=== PATIENT | female | born 1980 | race Asian ===

== ENCOUNTER 2016-12-31 05:29 | Inpatient (IN) | payer OTHER ==
[~2016-12-31] VITALS: Ht 152.4 cm; Wt 57.6 kg
[~2016-12-31 05:29] MED LIST: DOCU-41 PO; Ibuprofen PO; Lactated Ringer's 1,000 ML IV SCH; Oxycodone Hcl/Acetaminophen PO; PREN-20 PO
[2016-12-31] MEDS ORDERED: Hemorrhage Kit, Post Partum XX ONE ×2 (05:40→09:05)
[2016-12-31] MEDS ORDERED: Lactated Ringer's 1,000 ML IV SCH (05:40)
[2016-12-31] MEDS ORDERED: Methylergonovine 0.2 mg/mL Inj IM PRN ×2 (05:40→09:05)
[2016-12-31] MEDS ORDERED: CeFAZolin Inj 2 GM in Dextrose 5% 50 ML IV ONE (05:40)
[2016-12-31] MEDS ORDERED: Sodium Citrate-Citric Acid 15 mL Solution PO SCH (05:40)
[2016-12-31] MEDS ORDERED: Oxytocin 10 Unit/mL Inj IM PRN ×2 (05:40→09:05)
[2016-12-31] MEDS ORDERED: Carboprost 250 mCg/mL Inj IM PRN ×2 (05:40→09:05)
[2016-12-31 06:18] LABS: Mean Corpuscular Hemoglobin 31.9 pg (27.0-35.0); Mean Corpuscular Volume 91.1 fL (81-100)
--- NOTE | 2016-12-31 07:11 | PCM.HPOB ---
Subjective Date of Service: Dec 31, 2016 Referring Provider: Admitting Physician: Sulema Agarwal MD Primary Care Physician: Nopcp Attending Physician: Sulema Agarwal MD Chief Complaint Planned History of Present History of Present Illness Patient is a 36 y.o. F at [facility] 01/07/2017 admitted for planned cesarian section at 39 weeks. Previous delivered via cesarian section, complicated by HTN, fever, tachycardia. PMH exposure to TB. Patient has had routine care and screening for pre-eclampsia. Patient has elected to have repeat cesarian section vs , consent signed in clinic. Patient noted that she has elected for tubal ligation. Today patient is doing well no complaints of fever, chills, vaginal bleeding, fluid leaking, pain, decreased urination. Allergy none Vaccinations up to date labs: genetic screening negative 24 hour urine protien negative Quad screen negative GGT negative B + Ab screen negative HCT 40.4 Hgb 13.8 Pap negative Varicella immune Rubella immune HepB negative HIV negative Hep C neg RPR non reactive G/C negative TSH 0.823 GBS negative OB History: (2), Para (1) Past Medical History Obstetrical History: one previous cesarian section Complicated with PIH Gynecologic History: negative pap 2014 no history of STI Medical History: None Surgical History: previous cesarian section Social History: lives with and child Hx Tobacco Use: No Hx Alcohol Use: No Hx Substance Use: No Past Family History Living Arrangement: with Family Genetic Screening/Counseling Genetic Screening/Counseling: Negative Review of Systems Constitutional: Y: Change of appitite, Chills, Dizziness Eyes: Denies: Blurred Vision ENT: Denies: Ear Discharge, Ear Pain Cardiovascular: Denies: Chest Pain, Edema, Orthopnea Respiratory: Denies: Cough Gastrointestinal: Denies: Abdominal Pain, Heartburn, Nausea, Vomiting Genitourinary: Denies: Dysuria, Hematuria Musculoskeletal: Denies: Redness, Swelling Skin/Breasts: Denies: Bruising, Discharge Skin: Denies: Bruising, Jaundice Neurological: Denies: Change in Speech Psychologic: Denies: Agitation, Anxious, Apprehensive Medications Home medications vitamin Allergy Coded Allergies: No Known Allergies (Unverified Allergy, Unknown, 11/24/14) Exam Vital Signs 36.7 93 122/78 16 Exam FHR baseline 140 Category I tracing reactive, moderate variability Constitutional: Well-developed, Well-nourished HEENT: Atraumatic, PERRLA Lungs: Clear to Auscultation, Normal Air Movement Heart: Regular Rate/Rhythm, Normal S1, Normal S2, No Murmurs/Rubs/Gallops Abdomen: Gravid (size consistent with gestational age), Normal bowel sounds, Soft Extremities: Pulses Palpable x4, No Edema Neurological/Psychiatric: Alert, Oriented X3, Cooperative, No Acute Distress Labs/Diagnostics Labs WCT 10 Hgb 14 HCT 40 Ultra Sound 12/24/16 BPP US FINDINGS: General: A single living intrauterine gestation is present. Presentation: Vertex Placenta: Placental position is anterior, without previa. [employer] Ultrasound Procedure Report Summary Fetus Summary Estimated Gestational Age by first dating scan: 38 weeks, 0 days Composite Gestational Age by present scan: 39 weeks, 1 day Estimated Weight (EFW): 3854 g EFW percentile rank: 93 % Heart Rate: 148 bpm Findings(Amniotic Sac) Amniotic Fluid Index: 16.80 cm Pelvis and Uterus Cervix Length (Mean): 2.98 cm Biometry BiometryGroup Biparietal Diameter (Mean): 9.47 cm Gestational Age (BPD): 38 weeks, 4 days Head Circumference (Mean): 34.14 cm Gestational Age (HC): 39 weeks, 2 days Abdominal Circumference (Mean): 36.74 cm Gestational Age (AC): 40 weeks, 5 days Femur Length (Mean): 7.39 cm Gestational Age (FL): 37 weeks, 6 days Biophysical Profile Tone: 2 Gross Body Movement: 2 Breathin Amniotic Fluid Volume: 2 Biophysical Profile Sum Score: 8 Findings(Pelvic Vascular Structure) Umbilical Artery S/D Ratio: 1.93, 1.66, 1.61 IMPRESSION: Interval growth greater than expected estimated weight at the 93rd percentile. Correlate clinically. Normal biophysical profile and cord Doppler with preserved diastolic flow. Dictated by: Kermit JERRY Interpreted: Stanton Vidal MD on 12/24/2016 at 16:46 Approved by: Stanton Vidal M.D. on 12/24/2016 at 16:57 Maternal Blood Type: B Hx Rho(D) Immune Globulin: No Group B Strep Results: Negative Previous with GBS: No Rubella: Immune Additional Information vaccinations up to date OB Intrapartum Assessment/Plan Pain Evaluation: Adequate Pain Control Intrapartum plan Admit to [facility] for planned cesarian section Start IV IVF LR 125 mls/hr Anesthesia consult placed Ancef prior to surgery NPO Attending Statement I saw patient and examined her. I agree with above plan. NATHAINEL VAZQUEZ DO Dec 31, 2016 07:11 Sulema Agarwal MD Jan 09, 2017 15:54
--- NOTE | 2016-12-31 07:34 | HP ---
[address] [address] HISTORY AND PHYSICAL PATIENT: CHRIS PATRICK : 1980 MR#: [id number] ADMIT: 12/31/2016 JOB ID: [id number] HISTORY OF PRESENT ILLNESS: This is a 36-year-old female. She is 2, para 1, at 39 weeks. She presents today for a scheduled repeat section. She is a patient that has had routine care in the office. During her care, there was no abnormal finding. Her blood type is Rh positive. HIV negative. Hepatitis B negative. HCV negative. RPR negative. Chlamydia and gonorrhea negative and GBS negative. ALLERGIES: She has no known drug allergies. PAST MEDICAL HISTORY: She declined. PAST SURGICAL HISTORY: She has a previous section x1. GYNECOLOGICAL HISTORY: Not complicated. OBSTETRICAL HISTORY: She has one previous section for failure to descend. PHYSICAL EXAMINATION: She is afebrile. Her blood pressure in normal range. Cardiac RR, no murmur. Pulmonary bilaterally clear. Back nontender. No CVA tenderness. Abdomen is soft, nontender. Extremities nontender. heart tracing category one. Contractions not seen. ASSESSMENT AND PLAN: A 36-year-old female, 2, para 1, at 39 weeks previous section. 1. Plan for repeat section. 2. Previously the patient is not desiring for tubal ligation. Now she is planning for a possible tubal ligation if baby looks normal after delivery. We will sign consent form for tubal ligation.
[2016-12-31] MEDS ORDERED: Morphine PF 1 mg/mL 10 mL Inj INTRATHEC ONE (08:15)
[2016-12-31] MEDS ORDERED: Ondansetron 2 mg/mL 2 mL Inj IVPUSH PRN (08:15)
[2016-12-31] MEDS ORDERED: fentaNYL-PF 50 mCg/mL 2 mL Inj IVPUSH PRN (08:15)
[2016-12-31] MEDS ORDERED: HYDROmorphone 1 mg/mL Inj IVPUSH PRN (08:15)
[2016-12-31] MEDS ORDERED: Atropine 0.4 mg/mL Inj IV PRN (08:15)
[2016-12-31] MEDS ORDERED: EPHEDrine Sulfate 50 mg/mL Inj IVPUSH PRN (08:15)
[2016-12-31] MEDS ORDERED: MetoCLOpramide 5 mg/mL 2 mL Inj IVPUSH PRN (08:15)
[2016-12-31] MEDS ORDERED: Dexamethasone 4 mg/mL Inj IVPUSH PRN (08:15)
[2016-12-31] MEDS ORDERED: LANOlin HPA 7 Gm Ointment TOPICAL PRN (09:05)
[2016-12-31] MEDS ORDERED: Oxytocin 30 Units/500 mL LR 30 UNITS in IV Premix 1 EACH IV PRN (09:05)
[2016-12-31] MEDS ORDERED: Sodium Chloride LOK Flush 10 mL Syringe IVFLUSH PRN (09:05)
--- NOTE | 2016-12-31 09:07 | PCM.ANEP1 ---
Post Anesthesia PACU Phase 1 Assessment Anesthetic Administered: SAB Level of Alertness: Awake, talking CLAROS's with Equal Strength: No (spinal) Pain: No Nausea or Vomiting: No CV Function & Hydration Stable: Yes Airway Device: Oxygen Delivery: Room Air Lungs: Clear to Auscultation, Normal Air Movement PACU Phase 2 Assessment Complications: No Patient Instructions Provided: N/A Wes Buck MD Dec 31, 2016 09:07
[2016-12-31] MEDS: Acetaminophen IV 1,000 MG in IV Premix 1 EACH IV PRN ×2 (09:37→15:26)
--- NOTE | 2016-12-31 09:56 | OP ---
[address] [address] OPERATIVE REPORT PATIENT: CHRIS PATRICK : 1980 MR#: [id number] ADMIT: 12/31/2016 JOB ID: [id number] DATE OF SURGERY: 12/31/2016 HISTORY: This is a 36-year-old female. She is 2, para 2 now status post repeat section. PROCEDURE: Repeat section and bilateral salpingectomy. PREOPERATIVE DIAGNOSIS(ES): Previous section, desire for permanent sterilization. POSTOPERATIVE DIAGNOSIS(ES): Previous section, desire for permanent sterilization. SURGEON: Sulema Agarwal M.D. LAUNDRY CLERK: Dr. Alistair Shaw. Jury Consultant is very necessary for this procedure to be complete and for delivery of the baby. This is a 36-year-old female, 1, para 1 now. She had previous section two years ago when she was fully dilated, pushed for 3 hours with no descent of head. She decided to have repeat section for this . Informed consent signed after discussion about the benefits, risks and alternatives of the procedure. The patient understood the risk of infection, bleeding, injury to the organs around the uterus including but not limited to the bladder, ureters, major vessels, nerves and bowels. The patient also desires for permanent sterilization, agreed for bilateral salpingectomy. PROCEDURE IN DETAIL: The patient was transferred to operating room. After anesthesia was noted to be adequate, she was placed in the supine position with a leftward tilt. She was prepared and draped in a normal sterile fashion. A Pfannenstiel incision was placed by Bovie along the previous scar and this incision was carried through to the underlying fascia with Bovie. A transverse incision was placed on fascia and extended bilaterally with Hernandez scissors. At this time, the superior aspect of the incision was grasped by tenraghu, tented up. The underlying rectus muscle dissected off. The inferior aspect of the incision was grasped by adnexa Suhas, tented up. The underlying rectus muscle was dissected off. The rectus muscle was in the midline. The underlying peritoneum identified and entered sharply with direct visualization and extended bilaterally both bluntly and sharply. At this time, the lower blade inserted to expose the lower segment of the uterus. The vesicouterine peritoneum identified and entered sharply with Ferdinand scissors and extended bilaterally by Ferdinand scissors. The bladder flap created both sharply and digitally and the lower blade reinserted to expose the lower segment of the uterus. A transverse incision was placed on the lower segment uterus and extended bilaterally by bandage scissors. At this time, all instruments cleared from the field. The was delivered without difficulty. The infant after delivered there was spontaneous crying and there is normal tone. Delayed cord clamping performed 1 minute after delivery. The infant was handed to waiting used car lot attendant. At this time, the cord blood collected and the uterus was delivered spontaneously completely and examined with three-vessel cord. Uterus exteriorized. All debris and clots cleared from the field. The incision was closed by 0-Vicryl continuously with locked fashion. Hemostasis confirmed after closure of the incision. At this time, the attention was moved to her bilateral adnexa. The right tube was grasped by Mathews. The couple of avascular areas were penetrated by Bovie and the vessel was suture ligated and the entire tube was removed. Hemostasis confirmed. The same procedure was done on the left tube. Both ovaries looked normal. The pelvis was irrigated by warm normal saline and hemostasis confirmed. The uterus returned back to the abdominal cavity. The incision of the uterus was double checked. Hemostasis confirmed. At this time, the fascia was closed by 0-Vicryl continuously and then subcutaneous fat tissue was closed by 2-0 plain sutures and the skin was closed by 4-0 Monocryl on the Antione needle subcutaneously. The patient tolerated the procedure well. The EBL during the procedure was 600 cc. All instrument, needles, laps and gauzes counted correct twice. Urine output 200 cc. Patient transferred to recovery room in a stable condition.
[2016-12-31] MEDS ORDERED: Phenylephrine 10,000 mCg/mL Inj ONE (10:20)
[2016-12-31] MEDS ORDERED: Bupivacaine-MPF 0.75% 30 mL Inj ONE (10:20)
[2016-12-31] MEDS ORDERED: Morphine PF 1 mg/mL 10 mL Inj ONE (10:20)
[2016-12-31] MEDS ORDERED: Oxytocin 10 Unit/mL Inj ONE (10:20)
[2016-12-31] MEDS ORDERED: fentaNYL-PF 50 mCg/mL 2 mL Inj ONE (10:20)
[2016-12-31] MEDS: Lactated Ringer's 1,000 ML IV SCH ×3 (13:32→21:31)
[2017-01-01] MEDS: oxyCODONE-Acetamin 5-325 mg Tablet PO PRN ×5 (00:50→21:05)
[2017-01-01 06:20] LABS: Mean Corpuscular Hemoglobin 32.4 pg (27.0-35.0); Mean Corpuscular Volume 92.1 fL (81-100)
--- NOTE | 2017-01-01 07:44 | PCM.PNOBPP ---
Subjective Date of Service Jan 01, 2017 Post : Repeat Ceserean Delivery Visit History Patient is a 36 y.o. F at [facility] 01/07/2017 admitted for planned cesarian section at 39 weeks. Previous delivered via cesarian section, complicated by HTN, fever, tachycardia. PMH exposure to TB. Patient has had routine care and screening for pre-eclampsia. Patient has elected to have repeat cesarian section vs , consent signed in clinic. Patient noted that she has elected for tubal ligation. Group B Strep Results: Negative Rubella: Immune Blood Type: B Labs Laboratory Tests 01/01/17 05:57: White Blood Count 11.3, Red Blood Count 3.30, Hemoglobin 10.7, Hematocrit 30.4, Mean Corpuscular Volume 92.1, Mean Corpuscular Hemoglobin 32.4, Mean Corpuscular Hemoglobin Concent 35.2, Red Cell Distribution Width 13.2, Platelet Count 167 Exam Vital Signs Vital Signs: VS reviewed, stable Exam Abdomen: Fundus firm Perineum: Intact Extremities: No cords, Normal pulses, No edema Lungs: Clear to Auscultation, Normal Air Movement Heart: Regular Rate/Rhythm, Normal S1, Normal S2 General: Oriented X3, Cooperative, No Acute Distress Surgical Wound : Incision General Appearence: Wound under dressing Dressing & Drainage Status: Reinforced, Foul Odor Noted OB Post Assessment/Plan Pain Evaluation: Adequate Pain Control Post plan: Continue routine post care Attending Statement The patient was seen and examined together with Dr. Sahil Vazquez on 01/01/2017 and I agree with the history, exam and plan as outlined in the note above. SAHIL VAZQUEZ DO Jan 01, 2017 07:43 Alistair Shaw MD Jan 01, 2017 10:31
--- NOTE | 2017-01-01 15:35 | PATH ---
SURGICAL PATHOLOGY Attending Physician:Sulema Agarwal MD CASE STATUS: Signed Out PATIENT NAME: CHRIS PATRICK PID: [id number] : 1980 DATE COLLECTED:12/31/2016 20:19 SPECIMEN: 1: Fallopian Tube, Sterilization 2: Fallopian Tube, Sterilization CLINICAL HISTORY: PREVIOUS , REPORT AND D/C SALPINGECTOMY 1). LEFT FALLOPIAN TUBES 2). RIGHT FALLOPIAN TUBES FINAL DIAGNOSIS: 1.LEFT FALLOPIAN TUBE, STERILIZATION: ONE COMPLETE CIRCUMFERENTIAL SECTION OF FALLOPIAN TUBE. 2.RIGHT FALLOPIAN TUBE, STERILIZATION: ONE COMPLETE CIRCUMFERENTIAL SECTION OF FALLOPIAN TUBE. ICD10 Z30.2 GROSS DESCRIPTION: The specimen is received fresh in 2 containers labeled with the patient's name. 1). The specimen is labeled "left" and consists of a cylindrical shaped portion of tissue which measures 6.0 x 0.5 x 0.5 CM. The specimen is inked blue, 4 claim representative sections are submitted in cassette 1A. 2). The specimen is labeled "right" and consists of a cylindrical shaped portion of tissue which measures 5.0 x 0.5 x 0.5 CM. The specimen is inked blue, 4 claim representative sections are submitted in cassette 2A. 12/31/2016DC MICRO DESCRIPTION: See diagnosis. ICD-9 CODES: CPT CODES: 1: 82276 2: 56268 Electronically Signed Out Danii Liang MD [facility] Pathology [facility], [place] [address] Technical component performed at [facility], [address] [place] [address] [address], [place], [address]
[2017-01-02] MEDS: oxyCODONE-Acetamin 5-325 mg Tablet PO PRN ×3 (02:52→10:24)
--- NOTE | 2017-01-02 12:09 | PCM.DIOB ---
Obstetrical Disch Instruction Date of Service: Jan 02, 2017 Dates of Hospitalization Date of Hospital Admission Dec 31, 2016 at 05:29 Providers Admitting Physician: Sulema Agarwal MD Primary Care Physician: Anneliese Attending Physician: Sulema Agarwal MD Discharge Diagnosis Discharge Diagnosis POD#2 S/P RCD with bilateral salpingectomy for sterilization. Anemia Problems: Diet Discharge Diet: No restrictions Activity Discharge Activity-General: Pelvic Rest for 6 weeks, No lifting >10 pounds for 4-6 weeks Dressing and Incisional Care Dressing Care: Keep dressing clean, dry & intact Hygiene: May shower Follow Up Plan Follow-up Provider (F9): Sulema Agarwal MD Follow-up appointment: Weeks (2) Call your provider for: Fever or Chills, Shortness of breath, Heavy vaginal bleeding, Other (excessive pain not controlled with pain emdications, abnormal wound discharge.) Zeina Hernandez MD Jan 02, 2017 12:08
[2017-01-02] MEDS ORDERED: OXYC1TAB24 PO (12:12)
[2017-01-02] MEDS ORDERED: IBUP-1827 PO (12:12)
[2017-01-02] MEDS ORDERED: DOCU-41 PO (12:12)
[2017-01-02] MEDS ORDERED: FERR-74 PO (12:12)
[2017-01-02] MEDS ORDERED: ASCO500C6 PO (12:12)
--- NOTE | 2017-01-02 12:39 | DIS ---
[address] [address] DISCHARGE SUMMARY PATIENT: CHRIS PATRICK : 1980 MR#: [id number] ADMIT: 12/31/2016 JOB ID: [id number] DIS: 01/02/2017 REASON FOR ADMISSION: Elective repeat section. DIAGNOSIS: Postoperative day #2, status post repeat section with bilateral salpingectomy for sterilization. HOSPITAL COURSE: For further details, please refer to the fully dictated notes. On the day of discharge, the patient had no complaints, voiding, ambulating, tolerating p.o. intake, with no difficulties. OBJECTIVE: Vital signs are 139/75 for blood pressure. Respirations are 16. Pulse is 81, temperature 36.7 degrees centigrade. Heart is regular rate and rhythm. Positive S1, S2. Lungs clear to auscultation bilaterally. Abdomen is firm. Uterine fundus palpated at the level of the umbilicus. Incision is clean, dry, and intact with Steri-Strips in place. Appropriate tenderness around the incision. No abnormal discharge from the incision. Perineum: No active bleeding. Lower extremities: No calf tenderness appreciated bilaterally. LABORATORY DATA: H and H is 10.7 and 30.4 on day #1. DISCHARGE PLAN: Patient will be discharged home in stable condition. Follow up with Dr. Agarwal in two weeks. Instructed to have nothing in the vagina for six weeks. No heavy lifting more than baby's weight. Instructed to call for fever, chills, severe abdominal pain uncontrolled with pain medication, heavy vaginal bleeding, abnormal wound discharge or any other concerning symptoms. The patient be discharged home on Percocet 5/325, 1 tablet every 4 hours as needed for severe pain, ibuprofen 600 mg every 6 hours for moderate pain, Colace 100 mg twice daily, ferrous sulfate 325 mg twice daily, vitamin C 500 mg twice daily. Continue vitamins daily. Patient understood the discharge instructions. She will comply with the discharge plan.
[2017-01-02 12:41] VITALS: BP 139/75; PULSE 80; RESP 16
== END 2017-01-02 13:27 | disposition home or self-care (01) | DRG 766 ==
LOC: FBC 05:29 → EDSTATUS 07:15
PROVIDERS: ADMIT Obstetrics & Gynecology; ATTEND Obstetrics & Gynecology
PROC: 0UT70ZZ Resection of Bilateral Fallopian Tubes, Open Approach (ICD-10-PCS; 2016-12-31)
PROC: 10D00Z1 Extraction of Products of Conception, Low, Open Approach (ICD-10-PCS; principal; 2016-12-31 07:15)
DX: O34.211 Maternal care for low transverse scar from previous cesarean delivery (principal); Z3A.39 39 weeks gestation of pregnancy; Z37.0 Single live birth; Z30.2 Encounter for sterilization